=== PATIENT | male | born 1985 | race Caucasian/White ===

== ENCOUNTER 2018-09-06 11:55 | Emergency (ER) | payer OTHER ==
[2018-09-06 11:59] VITALS: BP 127/84; PULSE 74; TEMP 98.2; BMI 25.5
--- NOTE | 2018-09-06 12:25 | PDOC ---
History of Present Illness - General Chief Complaint: Pain, Acute Stated Complaint: YPD, NECK PAIN Time Seen by Provider: 09/06/18 12:19 - History of Present Illness Initial Comments: 09/06/18 12:23 33-year-old male without comorbidities presents for evaluation of neck pain. 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 He does have a history of C5-C7 cervical fusion done 2 years ago. He has no radicular symptoms today. His injury occurred just prior to arrival Past History - Past Medical History Allergies/Adverse Reactions: Allergies Allergy/AdvReac Type Severity Reaction Status Date / Time No Known Allergies Allergy Verified 09/06/18 11:59 Home Medications: Ambulatory Orders Cyclobenzaprine HCl [Flexeril 10 mg] 10 mg PO HS PRN #10 tablet 09/06/18 COPD: No DVT: No - Immunization History Immunization Up to Date: Yes - Suicide/Smoking/Psychosocial Hx Smoking History: Never smoked Have you smoked in the past 12 months: No Number of Cigarettes Smoked Daily: 0 Hx Alcohol Use: No Drug/Substance Use Hx: No Substance Use Type: Alcohol Review of Systems - Review of Systems Musculoskeletal: Yes: Neck Pain *Physical Exam - Vital Signs Last Vital Signs Temp Pulse Resp BP Pulse Ox 98.2 F 74 18 127/84 99 09/06/18 11:56 09/06/18 11:56 09/06/18 11:56 09/06/18 11:56 09/06/18 11:56 - Physical Exam Comments: 09/06/18 12:23 Cervical spine skin color and temperature are normal range of motion is limited secondary to pain. He has no midline tenderness mild right-sided paracervical musculature tenderness no spasm palpable. Moderate tenderness about the right levator scapula with associated spasm. 5 out of 5 strength in bilateral upper exterminate his without gross sensorimotor deficits she's neurovascularly intact Moderate Sedation - Procedure Monitoring Vital Signs: Procedure Monitoring Vital Signs Temperature 98.2 F 09/06/18 11:56 Pulse Rate 74 09/06/18 11:56 Respiratory Rate 18 09/06/18 11:56 Blood Pressure 127/84 09/06/18 11:56 O2 Sat by Pulse Oximetry (%) 99 09/06/18 11:56 *DC/Admit/Observation/Transfer Diagnosis at time of Disposition: Cervical strain - Discharge Dispostion Disposition: HOME Condition at time of disposition: Stable Decision to Admit order: No - Referrals Referrals: Yan Majano [Primary Care Provider] - - Patient Instructions Printed Discharge Instructions: DI for Cervical Muscle Strain Additional Instructions: Please follow-up with your spine surgery in 2-3 days for further evaluation and treatment options. Return to the emergency room should symptoms worsen or go unresolved. Again no anti-inflammatories for pain only Tylenol and the muscle relaxer I have prescribed for you. - Post Discharge Activity
== END 2018-09-06 12:32 | disposition home or self-care (01) ==
LOC: JERFT 11:55
DX: S16.1XXA Strain of muscle, fascia and tendon at neck level, initial encounter (principal); X50.0XXA Overexertion from strenuous movement or load, initial encounter; Y93.F2 Activity, caregiving, lifting; Y92.89 Other specified places as the place of occurrence of the external cause; Y99.0 Civilian activity done for income or pay; Z98.1 Arthrodesis status
CPT/HCPCS: 99281-25

== ENCOUNTER 2018-10-26 15:19 | Emergency (ER) | payer OTHER ==
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
[2018-10-26 15:37] VITALS: PULSE 78; TEMP 98.6; BMI 29.3
[2018-10-26 15:54] VITALS: BP 115/74
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
[2018-10-26] MEDS ORDERED: IBUPROFEN 600 MG TABLET (FP) PO ONE ×2 (17:12→17:14)
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
[2018-10-26 17:41] LABS: URINE APPEARANCE Clear; URINE BILIRUBIN Negative (<2.0 mg/dL); URINE COLOR Yellow; URINE GLUCOSE (UA) Negative (NEGATIVE); URINE KETONE Trace (NEGATIVE); URINE LEUK ESTERASE Negative (NEGATIVE); URINE NITRITE Negative (NEGATIVE); URINE PROTEIN Negative (NEGATIVE); URINE UROBILINOGEN 0.2 mg/dL (0.2-1.0)
== END 2018-10-26 18:28 | disposition home or self-care (01) ==
LOC: JER 15:19
DX: S39.848A Other specified injuries of external genitals, initial encounter (principal); Y04.2XXA Assault by strike against or bumped into by another person, initial encounter; Y35.811A Legal intervention involving manhandling, law enforcement official injured, initial encounter; Y93.89 Activity, other specified; Y92.89 Other specified places as the place of occurrence of the external cause; Y99.0 Civilian activity done for income or pay
CPT/HCPCS: 76870-TC; 81003; 99281-25

== ENCOUNTER 2019-03-10 22:45 | Emergency (ER) | payer OTHER ==
[2019-03-10 22:55] VITALS: BP 135/95; PULSE 70; TEMP 97.8; BMI 25.5
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
== END 2019-03-11 01:45 | disposition home or self-care (01) ==
LOC: JER 22:45
DX: Z77.21 Contact with and (suspected) exposure to potentially hazardous body fluids (principal); Y35.891A Legal intervention involving other specified means, law enforcement official injured, initial encounter; Y93.F9 Activity, other caregiving; Y92.89 Other specified places as the place of occurrence of the external cause; Y99.0 Civilian activity done for income or pay
CPT/HCPCS: 99281-25

== ENCOUNTER 2021-02-02 17:19 | Emergency (ER) | payer BC, OTHER ==
[2021-02-02 17:35] VITALS: BP 117/79; PULSE 51; TEMP 97.8; BMI 24.9
[2021-02-02] MEDS ORDERED: IBUPROFEN 600 MG TABLET (FP) PO ONE ×2 (17:41→17:45)
== END 2021-02-02 17:45 | disposition home or self-care (01) ==
LOC: FER 17:19
DX: S13.4XXA Sprain of ligaments of cervical spine, initial encounter (principal)
CPT/HCPCS: 99283-25